=== PATIENT | male | born 1955 | race Caucasian/White ===

== ENCOUNTER 2022-04-29 09:22 | Emergency (ER) | payer OTHER ==
[~2022-04-29] VITALS: Ht 175.3 cm; Wt 95.5 kg
[2022-04-29 09:23] VITALS: BP 148/95
[2022-04-29] MEDS ORDERED: METF-1211 PO (09:33)
[2022-04-29] MEDS ORDERED: EPIN0.3P3 IM (10:54)
[2022-04-29] MEDS ORDERED: PRED-554 PO (10:54)
== END 2022-04-29 11:13 | disposition home or self-care (01) ==
LOC: EMS 09:28
DX: T78.1XXA Other adverse food reactions, not elsewhere classified, initial encounter (principal); T78.49XA Other allergy, initial encounter; R60.1 Generalized edema; E11.9 Type 2 diabetes mellitus without complications; I10 Essential (primary) hypertension; X58.XXXA Exposure to other specified factors, initial encounter
CPT/HCPCS: 82962; 99283